=== PATIENT | female | born 1990 | race Caucasian/White ===

== ENCOUNTER 2016-09-13 09:57 | Emergency (ER) | payer SELFPAY ==
--- NOTE | ~2016-09-13 | ER ---
PATIENT'S NAME: VALERIE LINDER [facility] AGE: 26 Y [address] ROOM: [place] [address] LOCATION: ED ADMIT DATE: 09/13/2016 ER/Outpatient Report DISCHARGE DATE: 09/13/2016 FAMILY PHYSICIAN: Jaime Collins MD ATTENDING PHYSICIAN: Angie Kerr Admission date and time documented on the medical history. I saw this patient at 1010 hours. CHIEF COMPLAINT: Lower abdominal pain. HISTORY OF PRESENT ILLNESS: The patient is a 26-year-old female, who had onset of severe lower abdominal pain around 45 minutes to an hour prior to admission to the emergency room. Brought in by private vehicle for evaluation. Started to have a little bit of discomfort last night. She thought she might be constipated and did take a laxative. Had 2 diarrhea stools this morning. Had some nausea and vomiting x2 this morning. Some mild low back pain. No chest pain or shortness of breath. Little lightheaded, dizzy at times. No syncope or near syncope. No fall or trauma. No recent coughs, colds, flus, fever, chills, or sweats. No headache, eyes, ears, nose, throat, or neck pain. No joint or muscle swelling, redness, or pain. No skin eruptions or rash. No urinary frequency, urgency, or dysuria. No incontinence. Does have problems with anxiety. No neuro changes or endocrine problems. HOME MEDICATIONS: See attached medication list. ALLERGIES: NO MEDICINAL ALLERGIES. SOCIAL HISTORY: The patient smokes about a half a pack of cigarettes per day. Does use marijuana and alcohol occasionally. SIGNIFICANT PAST MEDICAL HISTORY: Ovarian cyst, tobacco abuse, marijuana use, and anxiety. OPERATIONS: Laparoscopic removal of ovarian cyst and inguinal hernia repair. REVIEW OF SYSTEMS: All systems reviewed by me are negative with the exception of those discussed in the history of present illness. PATIENT'S NAME: VALERIE LINDER [facility] AGE: 26 Y [address] ROOM: [place] [address] LOCATION: [facility] ADMIT DATE: 09/13/2016 ER/Outpatient Report DISCHARGE DATE: 09/13/2016 FAMILY PHYSICIAN: Jaime Collins MD ATTENDING PHYSICIAN: Angie Kerr PHYSICAL EXAMINATION: VITAL SIGNS: Blood pressure 171/79, pulse 85, respirations 19, and O2 saturation on room air is 100%. HEAD: Normocephalic. EYES, EARS, NOSE, THROAT: Clear. Mucous membranes moist. NECK: No nuchal rigidity. No findings of adenopathy. No tenderness. SPINE: Negative. LUNGS: Clear. No rales, rhonchi, or wheezes. HEART: Regular. Pulses are palpable. ABDOMEN: Flat. Soft. Nondistended. Tender in the lower abdomen to palpation. No true guarding or rigidity. No rebound tenderness. Active bowel tones. No organomegaly or abnormal masses palpable. No CVA tenderness. EXTREMITIES: Intact. NEUROVASCULAR: Intact. SKIN: Clear. LABORATORY DATA AND X-RAYS: CMS was normal. CRP was normal, less than 0.29. Urinalysis was clear. White count 7500, 69 segs, 24 lymphs, 6 monos, 1 eo, hemoglobin 13.9, hematocrit 39.9, and platelet count is 202,000. Ultrasound of the pelvis showed bilateral ovarian cysts, had a large right ovarian cyst, measured about 8 x 9 cm. The cyst look like hemorrhagic cyst. Also question of endometriosis. We did start the patient on IV normal saline and fluids. Gave her morphine for pain. Zofran for nausea and vomiting. IMPRESSION: Lower abdominal pain secondary to ovarian cyst bilaterally, large right 8 x 9 cm hemorrhagic ovarian cyst. PLAN: The patient was dismissed home. Observation. Activity as tolerated. Continue present home medications and care. Fluids and diet as tolerated. Talmage as needed for pain, 5/325, #20. The patient needs to have consultative exam by [facility] specialist. Follow up with personal physician as needed. Discussion ensued with the patient concerning my findings and recommendations, she understands. ANGIE KERR MD SDS/modl PATIENT'S NAME: VALERIE LINDER [facility] AGE: 26 Y [address] ROOM: [place] [address] LOCATION: [facility] ADMIT DATE: 09/13/2016 ER/Outpatient Report DISCHARGE DATE: 09/13/2016 FAMILY PHYSICIAN: Jaime Collins MD ATTENDING PHYSICIAN: Angie Kerr /[id number] d: 09/13/16 1747 t: 09/14/16 1814, OUTPATIENT REPORT
[2016-09-13 10:49] LABS: BASOPHIL % 0.4 %; EOSINOPHIL # 0.1 K/uL (0.0-0.5); EOSINOPHIL % 0.9 %; HEMATOCRIT 39.9 % (33.0-46.0); HEMOGLOBIN 13.9 g/dL (11.0-15.0); IMMATURE GRANULOCYTE % 0.3 %; LYMPHOCYTE # 1.8 K/uL (0.8-4.0); LYMPHOCYTE % 23.5 %; MCH 31.2 pg (27.0-34.0); MCHC 34.8 gm/dL (32.0-36.5); MCV 89.7 fl (83.0-98.0); MONOCYTE # 0.4 K/uL (0.0-1.0); MONOCYTE % 5.9 %; MPV 9.9 fl (9.4-12.4); NEUTROPHIL # (ANC) 5.2 K/uL (1.8-7.8); NRBC % 0 /100WBC (0-0.00); PLATELET COUNT 202 K/uL (150-450); RBC 4.45 M/uL (3.50-5.00); RDW-CV 11.9 % (11.9-14.6); WBC 7.5 K/uL (4.0-11.0)
[2016-09-13 11:03] LABS: BILIRUBIN URINE NEGATIVE (NEGATIVE); BLOOD URINE NEGATIVE /UL (NEGATIVE); COLOR URINE YELLOW (YELLOW); GLUCOSE URINE NEGATIVE (NEGATIVE); KETONE URINE 50 mg/dL (NEGATIVE); LEUKOCYTES URINE NEGATIVE /UL (NEGATIVE); NITRITE URINE NEGATIVE (NEGATIVE); PROTEIN URINE NEGATIVE (NEGATIVE); SPEC GRAVITY URINE 1.015 (1.003-1.035); TURBIDITY URINE CLEAR (CLEAR); UROBILINOGEN URINE NORMAL (NORMAL)
[2016-09-13 11:06] LABS: ALK PHOS 61 IU/L (33-138); ALT 17 IU/L (12-78); ANION GAP 13.7 (10.0-19.0); AST 15 IU/L (10-40); BLOOD UREA NITROGEN 10 mg/dL (6-24); CALCIUM 8.7 mg/dL (8.5-10.5); CHLORIDE 108 mMol/L (96-110); CO2 22 mMol/L (22-32); CREATININE 0.7 mg/dL (0.5-1.1); ESTIMATED GFR (MDRD EQUATION) > 60; POTASSIUM 3.7 mMol/L (3.7-5.1); SODIUM 140 mMol/L (135-145); TOTAL BILIRUBIN 0.3 mg/dL (0.0-1.5); TOTAL PROTEIN 7.6 g/dL (6.0-8.4)
[2016-09-20] MEDS ORDERED: HYDROCODON-ACE1 EAC4 PO (09:41)
[2016-09-24] MEDS ORDERED: PERCOCET 5-3251 EACH PO (14:38)
[2016-09-24] MEDS ORDERED: MOTRIN800 MG PO (14:39)
== END 2016-09-13 12:29 | disposition disaster alternative care site (69) ==
LOC: GMED 09:57
PROVIDERS: Emergency Medicine
DX: N83.201 Unspecified ovarian cyst, right side (principal); F17.210 Nicotine dependence, cigarettes, uncomplicated
CPT/HCPCS: J2270; J2405; J7030

== ENCOUNTER → 2016-09-24 | Day surgery (SDC) | payer SELFPAY ==
[~2016-09-24] VITALS: Ht 170.2 cm; Wt 54.3 kg
[~2016-09-24] MED LIST: HYDROCODON-ACE1 EAC4 PO; MOTRIN800 MG PO; PERCOCET 5-3251 EACH PO
--- NOTE | ~2016-09-24 | OR ---
PATIENT'S NAME: VALERIE LINDER [facility] AGE: 26 Y [address] ROOM: [place] [address] [place]ATION[place] [facility] [place] ADMIT DATE: 09/24/2016 OR/Procedure Report DISCHARGE DATE: FAMILY PHYSICIAN: Jaime Collins MD ATTENDING PHYSICIAN: Jeane Gilmore SURGEON: Jeane Gilmore MD SPUDDER: DATE OF PROCEDURE: 09/24/2016 PREOPERATIVE DIAGNOSIS: Bilateral ovarian cysts. POSTOPERATIVE DIAGNOSIS: Bilateral ovarian cysts. PROCEDURE: Laparoscopic bilateral ovarian cystectomy. ESTIMATED BLOOD LOSS: 25 mL. ANESTHESIA: GETA. FINDINGS: Right 6 cm x 4 cm ovarian cyst, appeared to be endometrioma. Left 3 cm x 4 cm ovarian cyst, appearing to be an endometrioma. The rest of the pelvic anatomy was normal. Normal intraabdominal anatomy. Normal tubes. Normal ovaries. Normal uterus. INDICATIONS: This patient is a 26-year-old 0 female, who presented with abdominal pain and had the above findings noted on imaging. Decision was made for diagnostic laparoscopy and bilateral ovarian cystectomy. Prior to the procedure, the risks, benefits, and alternatives to the procedure were discussed with the patient. She understood the risks to be, but not to be limited to, bleeding, infection, and damage to the bowel, bladder, and surrounding organs, and desired to proceed. DESCRIPTION OF PROCEDURE: The patient was taken to the operating room, where anesthesia was found to be adequate. She was prepped and draped in a dorsal lithotomy position, and a time-out was performed. A uterine manipulator was attempted to be placed into the cervix, but I was unable to advance it, so I opted to place a sponge stick instead. Gloves were changed, and attention was turned to the patient's abdomen. A Veress needle was introduced at a 45- degree angle while tenting the abdominal wall. Intraperitoneal placement was confirmed by a drop in pressure with insufflation of CO2 gas. A 5 mm skin incision was made infraumbilically and a 5 mm port was introduced. The scope was introduced. The patient was placed in Trendelenburg position and the above findings were noted. Two additional ports were placed, on the right side a 10 mm port and on the left side a 5 mm port. A long large-bore needle was introduced into the cyst on the left side with countertraction being PATIENT'S NAME: VALERIE LINDER [facility] AGE: 26 Y [address] ROOM: [place] [address] [place] [facility] [place] ADMIT DATE: 09/24/2016 OR/Procedure Report DISCHARGE DATE: FAMILY PHYSICIAN: Jaime Collins MD ATTENDING PHYSICIAN: Jeane Gilmore placed by a grasper through the additional port. About 150 mL of old brown blood was drawn out of the cyst. Then using a LigaSure device, an elliptical portion of the cyst wall was removed with hemostasis noted and that was brought out through the EndoCatch bag. The EndoCatch bag was examined and noted to be completely intact. Hemostasis was noted on the right side. On the left side, I again used the large-bore needle and ginette up about 50 mL of fluid this time. Then introducing the LigaSure device, removed elliptical portion of the cyst wall with hemostasis noted and this was removed easily just through the port itself. All of the anatomy was again surveyed to note that all areas were hemostatic. The abdomen was copiously irrigated and suctioned. The port sites were removed under direct visualization and as much air was removed from the patient's abdomen as possible. The fascia was closed at the 10 mm port with 0 Vicryl, and the skin was closed at all other ports with 4-0 Vicryl. COMPLICATIONS: None. CONDITION: The patient is stable. MD PATEL HOPKINS/francisco /[id number] d: 10/01/1614 t: 10/08/16 1132, OPERATIVE SUMMARY
== END | disposition disaster alternative care site (69) ==
LOC: GPOC 09-19 09:00 → GSDC 11:27
PROC: 0UB24ZZ Excision of Bilateral Ovaries, Percutaneous Endoscopic Approach (ICD-10-PCS; principal; 2016-09-24)
DX: N85.8 Other specified noninflammatory disorders of uterus (principal); Z98.890 Other specified postprocedural states; Z91.040 Latex allergy status; F17.210 Nicotine dependence, cigarettes, uncomplicated
CPT/HCPCS: J1100; J2250; J2405; J3010; J7120